=== PATIENT | female | born 1950 | race Two or more races ===

== ENCOUNTER 2017-04-04 22:31 | Inpatient (IN) | payer MEDICAID ==
[~2017-04-04] VITALS: Ht 162.6 cm; Wt 68.0 kg
[~2017-04-04 22:31] MED LIST: AMLO10TA80 PO; ASPI-1159 PO; CARV25TA47 PO; FURO20TA4 PO; GLIP10TA10 PO; INSU3INS6 SUBCUT; LISI10TA5 PO; METF10002 PO; NOVOLOG SQ; SIMV20TA6 PO
[2017-04-04] MEDS ORDERED: METHYLPREDNISOLONE SOD SUCC 125 MG/2 ML VIAL IV STA (23:34)
[2017-04-04] MEDS ORDERED: IPRATROPIUM BROMIDE (0.02%) 0.5MG/2.5ML NEB HHN STA (23:34)
[2017-04-04] MEDS ORDERED: ALBUTEROL (0.083%) 2.5MG/3ML NEB HHN STA (23:34)
[2017-04-04] MEDS ORDERED: SODIUM CHLORIDE 0.9% 1000ML BAG (SEPSIS BOLUS) IV ONE (23:45)
[2017-04-05 00:10] LABS: BASOPHILS % 0.5 % (0.0-2.0); EOSINOPHILS % 4.1 % (0.0-5.0); HEMOGLOBIN. 11.3 g/dL (12.0-16.0); LYMPHOCYTES % 29.2 % (20.0-50.0); MEAN CORPUSCULAR HEMOGLOBIN 28.6 pg (28.0-32.0); MEAN CORPUSCULAR VOLUME 86.1 fL (81.0-99.0); MEAN PLATELET VOLUME 7.5 fl (7.4-10.4); MONOCYTES % 10.1 % (2.0-8.0); NEUTROPHILS % 56.1 % (40.0-76.0); PLATELET 178 x1000/uL (130-400); RED BLOOD CELL COUNT 3.95 mill/uL (4.2-5.4)
[2017-04-05 00:19] LABS: INR 1.1; PROTHROMBIN TIME 11.4 sec
[2017-04-05 00:30] LABS: CARBON DIOXIDE 25 mEq/L (21-32); CHLORIDE 104 mEq/L (98-107); TROPONIN I < 0.02 ng/mL (0.00-0.04)
[2017-04-05] MEDS ORDERED: ALBUTEROL (0.5%) 2.5MG/0.5ML NEB HHN ONE (00:36)
[2017-04-05] MEDS ORDERED: ASPIRIN 325MG TABLET PO ONE (01:45)
[2017-04-05] MEDS ORDERED: LEVOFLOXACIN 500MG PREMIX 100 ML IV ONE (01:45)
[2017-04-05 04:48] LABS: CLARITY URINE CLEAR (CLEAR); COLOR URINE YELLOW (YELLOW); KETONES URINE NEGATIVE (NEGATIVE); LEUKOCYTE ESTERASE URINE NEGATIVE (NEGATIVE); NITRITE URINE NEGATIVE (NEGATIVE); OCCULT BLOOD URINE NEGATIVE (NEGATIVE); PROTEIN URINE 1+ (NEGATIVE); SPECIFIC GRAVITY URINE 1.008 (1.005-1.030); UROBILINOGEN URINE 0.2 E.U./dL (0.2-1.0)
[2017-04-05] MEDS ORDERED: DEXTROSE 50% WATER 50ML SYRINGE IV PRN (10:30)
[2017-04-05] MEDS ORDERED: IPRATROPIUM/ALBUTEROL 0.5-3(2.5)MG/3ML NEB HHN PRN ×2 (10:30→11:15)
[2017-04-05] MEDS ORDERED: CARV12.545 PO (10:37)
[2017-04-05] MEDS ORDERED: INSASP SQ (10:37)
[2017-04-05] MEDS ORDERED: INSU3INS6 SUBCUT (10:37)
[2017-04-05] MEDS ORDERED: LISI-186 PO (10:37)
[2017-04-05] MEDS ORDERED: OMEP20CA10 PO (10:48)
[2017-04-05] MEDS: AZITHROMYCIN 500 MG TABLET PO SCH (10:57)
[2017-04-05] MEDS: ENOXAPARIN 40MG/0.4ML SYR SUBCUT SCH (10:59)
[2017-04-05] MEDS ORDERED: OMEPRAZOLE 20MG CAPSULE EXTENDED RELEASE PO PRN (11:00)
[2017-04-05] MEDS ORDERED: SODIUM CHLORIDE 10% FOR INH 15ML VIAL NEB INH NR (11:30)
[2017-04-05] MEDS: BLOOD SUGAR DIAGNOSTIC STRIP TEST SCH ×3 (11:58→21:01)
[2017-04-05] MEDS ORDERED: INSULIN DETEMIR UD 100 UNITS/ML SYR SUBCUT SCH ×2 (12:00→22:00)
[2017-04-05] MEDS: INSULIN LISPRO 100 UNITS/ML SUBCUT SCH ×3 (12:09→21:00)
[2017-04-05] MEDS ORDERED: METFORMIN HCL 500MG TABLET PO SCH (12:15)
[2017-04-05 12:28] LABS: CREATINE KINASE 176 IU/L (26-192); CREATINE KINASE MB FRACTION 2.5 ng/mL (0.5-3.6); HDL CHOLESTEROL 77 mg/dL (40-59); LDL CHOLESTEROL 93 mg/dL (5-100); TROPONIN I < 0.02 ng/mL (0.00-0.04)
[2017-04-05] MEDS: CEFTRIAXONE 1 G PREMIX 50 ML IV SCH (14:39)
[2017-04-05] MEDS: ACETAMINOPHEN 325MG TABLET PO PRN (14:39)
[2017-04-05] MEDS: BUDESONIDE 0.5MG/2ML NEB HHN SCH ×3 (15:11→23:45)
[2017-04-05] MEDS: IPRATROPIUM/ALBUTEROL 0.5-3(2.5)MG/3ML NEB HHN SCH ×2 (15:11→20:50)
[2017-04-05] MEDS: CARVEDILOL 12.5MG TABLET PO SCH (16:12)
[2017-04-05] MEDS: AMLODIPINE 10MG TABLET PO SCH ×2 (16:12→16:15)
[2017-04-05] MEDS: GLIPIZIDE 10MG TABLET PO SCH (16:13)
[2017-04-05] MEDS ORDERED: MEDICATION NOT ON FORMULARY EA (Metformin Hcl 1 TAB) PO SCH (17:00)
[2017-04-05] MEDS ORDERED: LISINOPRIL 5MG TABLET PO SCH (17:00)
[2017-04-05] MEDS: METFORMIN HCL 500MG TABLET PO SCH (17:54)
[2017-04-05 20:51] LABS: CREATINE KINASE 232 IU/L (26-192); CREATINE KINASE MB FRACTION 3.2 ng/mL (0.5-3.6); TROPONIN I < 0.02 ng/mL (0.00-0.04)
[2017-04-05] MEDS: GUAIFENESIN 600MG ER TABLET PO SCH (20:59)
[2017-04-05] MEDS ORDERED: ATORVASTATIN CALCIUM 10MG TABLET PO SCH (21:00)
[2017-04-05] MEDS ORDERED: MEDICATION NOT ON FORMULARY EA (Simvastatin 1 TAB) PO SCH (21:00)
[2017-04-05] MEDS ORDERED: INSULIN GLARGINE HUM REC ANLOG 18 UNIT SUBCUT SCH (22:00)
[2017-04-05] MEDS ORDERED: [UNRECOGNIZED DRUG - OTHER] SUBCUT SCH (22:00)
[2017-04-06] MEDS: IPRATROPIUM/ALBUTEROL 0.5-3(2.5)MG/3ML NEB HHN SCH ×6 (00:27→15:46)
[2017-04-06] MEDS ORDERED: MAGNESIUM 2 G PREMIX 50 ML IV NR (01:00)
[2017-04-06] MEDS: PROMETHAZINE/DEXTROMETHORPHAN 6.25-15MG/5ML BOTTLE 120ML PO PRN ×2 (01:58→08:46)
[2017-04-06] MEDS: ACETAMINOPHEN 325MG TABLET PO PRN ×2 (06:42→15:08)
[2017-04-06] MEDS ORDERED: OMEPRAZOLE 20MG CAPSULE EXTENDED RELEASE PO SCH (06:45)
[2017-04-06] MEDS: BLOOD SUGAR DIAGNOSTIC STRIP TEST SCH ×3 (06:54→17:14)
[2017-04-06] MEDS: INSULIN LISPRO 100 UNITS/ML SUBCUT SCH ×3 (06:54→17:15)
[2017-04-06 07:04] LABS: BASOPHILS % 0.3 % (0.0-2.0); EOSINOPHILS % 0.5 % (0.0-5.0); HEMATOCRIT. 32.7 % (36.0-48.0); HEMOGLOBIN. 10.9 g/dL (12.0-16.0); LYMPHOCYTES % 26.7 % (20.0-50.0); MEAN CORPUSCULAR HEMOGLOBIN 28.3 pg (28.0-32.0); MEAN CORPUSCULAR VOLUME 84.7 fL (81.0-99.0); MEAN PLATELET VOLUME 7.7 fl (7.4-10.4); MONOCYTES % 8.4 % (2.0-8.0); NEUTROPHILS % 64.1 % (40.0-76.0); PLATELET 191 x1000/uL (130-400); RED BLOOD CELL COUNT 3.86 mill/uL (4.2-5.4); RED CELL DISTRIBUTION WIDTH 14.1 % (11.6-14.6)
[2017-04-06 07:14] LABS: CHLORIDE 107 mEq/L (98-107)
[2017-04-06 07:17] LABS: CARBON DIOXIDE 27 mEq/L (21-32)
[2017-04-06] MEDS: METFORMIN HCL 500MG TABLET PO SCH ×2 (07:57→17:13)
[2017-04-06] MEDS: BUDESONIDE 0.5MG/2ML NEB HHN SCH (08:39)
[2017-04-06] MEDS: ENOXAPARIN 40MG/0.4ML SYR SUBCUT SCH (08:44)
[2017-04-06] MEDS: AZITHROMYCIN 500 MG TABLET PO SCH (08:45)
[2017-04-06] MEDS: GLIPIZIDE 10MG TABLET PO SCH ×2 (08:45→17:13)
[2017-04-06] MEDS: GUAIFENESIN 600MG ER TABLET PO SCH ×2 (08:45→09:00)
[2017-04-06] MEDS: AMLODIPINE 10MG TABLET PO SCH ×2 (08:45→17:13)
[2017-04-06] MEDS: CARVEDILOL 12.5MG TABLET PO SCH ×2 (08:46→17:13)
[2017-04-06] MEDS ORDERED: ASPIRIN 81MG TABLET PO SCH (09:00)
[2017-04-06] MEDS ORDERED: GUAIFENESIN/CODEINE 100-10MG/5ML UDC PO PRN (12:15)
[2017-04-06] MEDS: CEFTRIAXONE 1 G PREMIX 50 ML IV SCH (13:51)
[2017-04-06 16:22] VITALS: BP 126/64
[2017-04-07] MEDS ORDERED: FUROSEMIDE 20MG TABLET PO SCH (09:00)
== END 2017-04-06 17:30 | disposition home or self-care (01) | DRG 133 ==
LOC: ER 04-05 → 5WST 04-05 01:42 → EDBEDREQTM 04-05 01:45 → EDBEDREQ 04-05 01:45 → ENRESERV 04-05 08:00 → CANBEDREQ 04-05 09:44
PROVIDERS: ADMIT Internal Medicine; ATTEND Internal Medicine
DX: J96.00 Acute respiratory failure, unspecified whether with hypoxia or hypercapnia (principal); J44.9 Chronic obstructive pulmonary disease, unspecified; E11.65 Type 2 diabetes mellitus with hyperglycemia; E44.1 Mild protein-calorie malnutrition; E11.9 Type 2 diabetes mellitus without complications; I10 Essential (primary) hypertension; E78.5 Hyperlipidemia, unspecified; I25.10 Atherosclerotic heart disease of native coronary artery without angina pectoris; J06.9 Acute upper respiratory infection, unspecified; R07.89 Other chest pain; K21.9 Gastro-esophageal reflux disease without esophagitis; Z79.84 Long term (current) use of oral hypoglycemic drugs; Z79.899 Other long term (current) drug therapy; Z82.49 Family history of ischemic heart disease and other diseases of the circulatory system; Z95.1 Presence of aortocoronary bypass graft; Z79.82 Long term (current) use of aspirin; E83.42 Hypomagnesemia
CPT/HCPCS: 36415; 71010; 71250; 80048; 80053; 80061; 81001; 82550; 82553; 82962; 83605; 83735; 83880; 84484; 85025; 85610; 87040; 87070; 87086; 93005; 93306; 93970; 94640; 96361; 96365; 96366; 96375; 99285; J0696; J1650; J1815; J1956; J2930; J3475; J7030; J7040; J7131; J7611; J7620; J7626

== ENCOUNTER 2020-08-29 14:49 | Inpatient (IN) | payer MEDICAID ==
[~2020-08-29] VITALS: Ht 162.6 cm; Wt 76.0 kg
[~2020-08-29 14:49] MED LIST changes: -ASPI-1159 PO; +ASPI-1497 PO; +CARV12.545 PO; -CARV25TA47 PO; +INSASP SQ; -LISI10TA5 PO; +METF-416 PO; -METF10002 PO; -NOVOLOG SQ; +OMEP20CA14 PO; +SIMV-43 PO; -SIMV20TA6 PO
[2020-08-29] MEDS: ASPIRIN 81MG TABLET PO NR ×2 (16:00→17:11)
[2020-08-29] MEDS: GUAIFENESIN 200MG TABLET PO NR ×3 (16:00→17:12)
[2020-08-29 16:28] LABS: BASOPHILS % 0.7 % (0.0-2.0); EOSINOPHILS % 3.5 % (0.0-5.0); HEMATOCRIT. 34.3 % (36.0-48.0); HEMOGLOBIN. 11.4 g/dL (12.0-16.0); MEAN CORPUSCULAR HEMOGLOBIN 28.7 pg (28.0-32.0); MEAN CORPUSCULAR VOLUME 86.7 fL (81.0-99.0); MEAN PLATELET VOLUME 7.8 fl (7.4-10.4); MONOCYTES % 11.9 % (2.0-8.0); NEUTROPHILS % 58.9 % (40.0-76.0); PLATELET 246 x1000/uL (130-400); RED BLOOD CELL COUNT 3.96 mill/uL (4.2-5.4); RED CELL DISTRIBUTION WIDTH 14.7 % (11.6-14.6)
[2020-08-29 17:28] LABS: CHLORIDE 108 mEq/L (98-107)
[2020-08-29] MEDS ORDERED: DOXYCYCLINE HYCLATE 100MG CAPSULE PO ONE ×2 (18:30→19:00)
[2020-08-29] MEDS ORDERED: CEFTRIAXONE 1 G PREMIX 50 ML IV ONE (18:30)
[2020-08-29 21:27] VITALS: BP_SYST 149; BP_DIAS 65; BP_DIAS 86
[2020-08-29] MEDS ORDERED: DEXTROSE 50% WATER 50ML SYRINGE IV PRN (23:15)
[2020-08-29] MEDS ORDERED: ALBUTEROL 6.7GM HFA INHALER ORI PRN (23:15)
[2020-08-29] MEDS ORDERED: CEFTRIAXONE 1 G PREMIX 50 ML IV SCH (23:15)
[2020-08-30] VITALS: BP 135/73
[2020-08-30] MEDS ORDERED: LANTUSUD SUBCUT (00:14)
[2020-08-30] MEDS ORDERED: AMLO5TAB88 PO (00:14)
[2020-08-30] MEDS ORDERED: ASPI-1497 MT (00:14)
[2020-08-30] MEDS ORDERED: LOSA25TA26 MT (00:14)
[2020-08-30] MEDS ORDERED: CARV12.545 MT (00:14)
[2020-08-30] MEDS: ACETAMINOPHEN 325MG TABLET PO PRN ×2 (00:21→15:21)
[2020-08-30] MEDS: GUAIFENESIN 200MG/10ML SUGAR FREE UDC PO PRN (00:21)
[2020-08-30] MEDS: AZITHROMYCIN 500 MG in DEXT 5% WATER 250 ML IV SCH (01:33)
[2020-08-30 04:00] VITALS: BP 129/50
[2020-08-30] MEDS: BLOOD SUGAR DIAGNOSTIC STRIP TEST SCH ×4 (06:05→20:49)
[2020-08-30] MEDS: INSULIN LISPRO 100 UNITS/ML SUBCUT SCH ×4 (06:49→20:48)
[2020-08-30 07:06] LABS: BASOPHILS % 0.3 % (0.0-2.0); EOSINOPHILS % 3.3 % (0.0-5.0); HEMATOCRIT. 33.9 % (36.0-48.0); HEMOGLOBIN. 11.4 g/dL (12.0-16.0); LYMPHOCYTES % 34.5 % (20.0-50.0); MEAN CORPUSCULAR HEMOGLOBIN 28.7 pg (28.0-32.0); MEAN CORPUSCULAR VOLUME 85.3 fL (81.0-99.0); MEAN PLATELET VOLUME 7.2 fl (7.4-10.4); MONOCYTES % 14.3 % (2.0-8.0); NEUTROPHILS % 47.6 % (40.0-76.0); PLATELET 242 x1000/uL (130-400); RED BLOOD CELL COUNT 3.97 mill/uL (4.2-5.4)
[2020-08-30 08:00] VITALS: BP 135/67
[2020-08-30] MEDS ORDERED: DEXAMETHASONE 4MG TABLET PO SCH (09:00)
[2020-08-30] MEDS: ASPIRIN 81MG TABLET PO SCH (10:06)
[2020-08-30] MEDS: ENOXAPARIN 40MG/0.4ML SYR SUBCUT SCH (10:06)
[2020-08-30] MEDS: FAMOTIDINE 20MG TABLET PO SCH (10:07)
[2020-08-30] MEDS: CARVEDILOL 12.5MG TABLET PO SCH ×2 (10:07→20:46)
[2020-08-30] MEDS: LOSARTAN POTASSIUM 25 MG TABLET PO SCH (10:07)
[2020-08-30] MEDS: GUAIFENESIN 600MG ER TABLET PO SCH ×2 (10:08→20:46)
[2020-08-30] MEDS: AMLODIPINE 10MG TABLET PO SCH (10:08)
[2020-08-30 12:00] VITALS: BP 120/54
[2020-08-30] MEDS ORDERED: INSULIN LISPRO 100 UNITS/ML SUBCUT NR (15:45)
[2020-08-30 16:00] VITALS: BP 127/96
[2020-08-30 20:00] VITALS: BP 158/60
[2020-08-30] MEDS ORDERED: GLIPIZIDE 10MG TABLET PO NR (20:00)
[2020-08-30] MEDS: CEFTRIAXONE 1,000 MG in DEXTROSE 5% WATER 50 ML IV SCH (20:45)
[2020-08-30] MEDS: ATORVASTATIN CALCIUM 10MG TABLET PO SCH (20:46)
[2020-08-30] MEDS: INSULIN GLARGINE UD 100 UNITS/ML SYR SUBCUT SCH (21:31)
[2020-08-30] MEDS ORDERED: INSULIN GLARGINE UD 100 UNITS/ML SYR SUBCUT SCH ×2 (22:00)
[2020-08-31] VITALS: BP 140/56
[2020-08-31] MEDS: AZITHROMYCIN 500 MG in DEXT 5% WATER 250 ML IV SCH (00:52)
[2020-08-31] MEDS: GUAIFENESIN 200MG/10ML SUGAR FREE UDC PO PRN ×2 (03:17→08:18)
[2020-08-31 04:00] VITALS: BP 154/69
[2020-08-31] MEDS: BLOOD SUGAR DIAGNOSTIC STRIP TEST SCH ×4 (06:23→20:35)
[2020-08-31 06:47] LABS: BASOPHILS % 0.3 % (0.0-2.0); HEMATOCRIT. 34.1 % (36.0-48.0); HEMOGLOBIN. 11.6 g/dL (12.0-16.0); MEAN CORPUSCULAR VOLUME 85.3 fL (81.0-99.0); MEAN PLATELET VOLUME 7.3 fl (7.4-10.4); MONOCYTES % 7.2 % (2.0-8.0); NEUTROPHILS % 80.5 % (40.0-76.0); PLATELET 278 x1000/uL (130-400); RED BLOOD CELL COUNT 3.99 mill/uL (4.2-5.4); RED CELL DISTRIBUTION WIDTH 13.9 % (11.6-14.6)
[2020-08-31 06:55] LABS: CHLORIDE 103 mEq/L (98-107)
[2020-08-31 08:00] VITALS: BP 153/68
[2020-08-31] MEDS: ENOXAPARIN 40MG/0.4ML SYR SUBCUT SCH (08:18)
[2020-08-31] MEDS: INSULIN LISPRO 100 UNITS/ML SUBCUT SCH ×4 (08:18→20:35)
[2020-08-31] MEDS: FAMOTIDINE 20MG TABLET PO SCH (08:18)
[2020-08-31] MEDS: GUAIFENESIN 600MG ER TABLET PO SCH ×2 (08:18→20:33)
[2020-08-31] MEDS: ASPIRIN 81MG TABLET PO SCH (08:18)
[2020-08-31] MEDS: LOSARTAN POTASSIUM 25 MG TABLET PO SCH ×2 (08:19→20:33)
[2020-08-31] MEDS: AMLODIPINE 10MG TABLET PO SCH (08:19)
[2020-08-31] MEDS: CARVEDILOL 12.5MG TABLET PO SCH ×2 (08:19→20:34)
[2020-08-31] MEDS: INSULIN GLARGINE UD 100 UNITS/ML SYR SUBCUT SCH ×2 (09:14→21:14)
[2020-08-31] MEDS: ACETAMINOPHEN 325MG TABLET PO PRN (09:16)
[2020-08-31] MEDS ORDERED: GUAIFENESIN-DM 200MG-20MG/10ML UDC PO PRN (09:30)
[2020-08-31] MEDS: BENZONATATE 100MG CAPSULE PO SCH ×3 (09:46→21:14)
[2020-08-31] MEDS: DEXAMETHASONE 4MG TABLET PO SCH (11:43)
[2020-08-31] MEDS: HYDRALAZINE HCL 25MG TABLET PO SCH ×2 (11:43→21:14)
[2020-08-31] MEDS: FLUTICASONE PROPIONATE 50MCG/SPRAY BOTTLE BOTHNSTRLS SCH ×2 (11:46→20:32)
[2020-08-31 12:00] VITALS: BP 148/71
[2020-08-31 16:00] VITALS: BP 151/69
[2020-08-31] MEDS: GLIPIZIDE 10MG TABLET PO SCH (17:12)
[2020-08-31 20:00] VITALS: BP 135/53
[2020-08-31] MEDS: CEFTRIAXONE 1,000 MG in DEXTROSE 5% WATER 50 ML IV SCH (20:32)
[2020-08-31] MEDS: ATORVASTATIN CALCIUM 10MG TABLET PO SCH (20:35)
[2020-09-01] VITALS: BP 132/48
[2020-09-01] MEDS: AZITHROMYCIN 500 MG in DEXT 5% WATER 250 ML IV SCH (01:11)
[2020-09-01 04:00] VITALS: BP 136/56
[2020-09-01] MEDS: BENZONATATE 100MG CAPSULE PO SCH ×2 (06:26→13:50)
[2020-09-01] MEDS: HYDRALAZINE HCL 25MG TABLET PO SCH ×2 (06:27→13:50)
[2020-09-01] MEDS: BLOOD SUGAR DIAGNOSTIC STRIP TEST SCH ×2 (06:27→11:40)
[2020-09-01] MEDS: GLIPIZIDE 10MG TABLET PO SCH (06:27)
[2020-09-01 08:00] VITALS: BP 143/62
[2020-09-01] MEDS: GUAIFENESIN 600MG ER TABLET PO SCH (09:00)
[2020-09-01 09:01] LABS: BASOPHILS % 0.2 % (0.0-2.0); HEMATOCRIT. 35.2 % (36.0-48.0); HEMOGLOBIN. 11.7 g/dL (12.0-16.0); LYMPHOCYTES % 11.5 % (20.0-50.0); MEAN CORPUSCULAR HEMOGLOBIN 28.8 pg (28.0-32.0); MEAN CORPUSCULAR VOLUME 86.5 fL (81.0-99.0); MEAN PLATELET VOLUME 7.1 fl (7.4-10.4); MONOCYTES % 5.8 % (2.0-8.0); NEUTROPHILS % 82.5 % (40.0-76.0); PLATELET 320 x1000/uL (130-400); RED BLOOD CELL COUNT 4.06 mill/uL (4.2-5.4)
[2020-09-01 09:16] LABS: CHLORIDE 104 mEq/L (98-107)
[2020-09-01] MEDS: ASPIRIN 81MG TABLET PO SCH (09:31)
[2020-09-01] MEDS: GUAIFENESIN 200MG/10ML SUGAR FREE UDC PO PRN (09:31)
[2020-09-01] MEDS: ENOXAPARIN 40MG/0.4ML SYR SUBCUT SCH (09:32)
[2020-09-01] MEDS: FLUTICASONE PROPIONATE 50MCG/SPRAY BOTTLE BOTHNSTRLS SCH (09:32)
[2020-09-01] MEDS: AMLODIPINE 10MG TABLET PO SCH (09:33)
[2020-09-01] MEDS: LOSARTAN POTASSIUM 25 MG TABLET PO SCH (09:33)
[2020-09-01] MEDS: DEXAMETHASONE 4MG TABLET PO SCH (09:33)
[2020-09-01] MEDS: FAMOTIDINE 20MG TABLET PO SCH (09:33)
[2020-09-01] MEDS: INSULIN LISPRO 100 UNITS/ML SUBCUT SCH ×2 (09:36→13:51)
[2020-09-01] MEDS: INSULIN GLARGINE UD 100 UNITS/ML SYR SUBCUT SCH (09:38)
[2020-09-01] MEDS: CARVEDILOL 12.5MG TABLET PO SCH (09:39)
[2020-09-01] MEDS ORDERED: LANTUSUD SUBCUT (09:48)
[2020-09-01] MEDS ORDERED: LOSA50TA41 MT (09:48)
[2020-09-01] MEDS ORDERED: BENZ100C86 PO (09:48)
[2020-09-01] MEDS ORDERED: ALBU6.7H9 ORI (09:48)
[2020-09-01] MEDS ORDERED: DEX4 PO (09:48)
[2020-09-01] MEDS ORDERED: ACET-2708 MT (09:49)
[2020-09-01] MEDS ORDERED: INSU100I13 SQ (09:49)
[2020-09-01] MEDS ORDERED: GLIP10TA10 MT (09:49)
[2020-09-01] MEDS: ACETAMINOPHEN 325MG TABLET PO PRN (10:42)
[2020-09-01 12:00] VITALS: BP 141/59
[2020-09-01 14:38] VITALS: BP 132/58
[2020-09-02] MEDS ORDERED: AZITHROMYCIN 500 MG TABLET PO SCH (09:00)
== END 2020-09-01 15:30 | disposition home or self-care (01) | DRG 720 ==
LOC: ER 14:49 → 7EST 18:32 → ENRESERV 20:39
PROVIDERS: ADMIT Internal Medicine; ATTEND Internal Medicine
DX: A41.89 Other specified sepsis (principal); J12.89 Other viral pneumonia; U07.1 COVID-19; J96.01 Acute respiratory failure with hypoxia; E11.9 Type 2 diabetes mellitus without complications; E78.5 Hyperlipidemia, unspecified; I25.10 Atherosclerotic heart disease of native coronary artery without angina pectoris; I11.0 Hypertensive heart disease with heart failure; I50.9 Heart failure, unspecified; Z79.82 Long term (current) use of aspirin; Z79.899 Other long term (current) drug therapy; Z79.4 Long term (current) use of insulin; Z95.1 Presence of aortocoronary bypass graft; Z98.891 History of uterine scar from previous surgery; Z82.49 Family history of ischemic heart disease and other diseases of the circulatory system; Z83.3 Family history of diabetes mellitus; Z82.3 Family history of stroke
CPT/HCPCS: 36415; 71045; 80048; 80053; 80061; 82962; 83036; 83880; 84484; 85025; 87635; 93005; 99291; J0456; J0696; J1650; J1815; J7040; J7060; J8540

== ENCOUNTER 2022-11-11 15:51 | Emergency (ER) | payer MEDICAID ==
[~2022-11-11] VITALS: Ht 162.6 cm; Wt 76.0 kg
[~2022-11-11 15:51] MED LIST changes: +ACET-2708 MT; +ALBU6.7H3 ORI; -AMLO10TA80 PO; +AMLO5TAB88 PO; +ASPI-1497 MT; -ASPI-1497 PO; +BENZ100C86 PO; +CARV12.545 MT; -CARV12.545 PO; +DEX4 PO; -FURO20TA4 PO; +GLIP10TA10 MT; -GLIP10TA10 PO; -INSASP SQ; +INSU100I13 SQ; -INSU3INS6 SUBCUT; +LANTUSUD SUBCUT; +LOSA25TA26 MT; +LOSA50TA41 MT; -METF-416 PO; -OMEP20CA14 PO; -SIMV-43 PO
[2022-11-11 16:16] VITALS: BP 165/49
[2022-11-11] MEDS ORDERED: AMOX-494 MT (18:12)
[2022-11-11] MEDS ORDERED: FLUT9.9S BOTHNSTRLS (18:12)
[2022-11-11] MEDS ORDERED: D-ME473S50 PO (18:37)
== END 2022-11-11 18:43 | disposition home or self-care (01) ==
LOC: ER 15:51
DX: J01.90 Acute sinusitis, unspecified (principal); I10 Essential (primary) hypertension; E11.9 Type 2 diabetes mellitus without complications; Z68.28 Body mass index [BMI] 28.0-28.9, adult; Z79.899 Other long term (current) drug therapy; Z98.890 Other specified postprocedural states
CPT/HCPCS: 71045; 93005; 99283

== ENCOUNTER 2023-09-08 13:39 | Emergency (ER) | payer OTHER ==
[~2023-09-08] VITALS: Ht 165.1 cm; Wt 100.0 kg
[~2023-09-08 13:39] MED LIST changes: +AMOX-494 MT; +D-ME473S50 PO; +FLUT9.9S BOTHNSTRLS
[2023-09-08 13:47] VITALS: BP 140/64; PULSE 95; RESP 18; TEMP 98.5; O2SAT 100
[2023-09-08 14:27] LABS: BASOPHILS % 0.3 % (0.0-2.0); EOSINOPHILS % 1.9 % (0.0-5.0); HEMATOCRIT. 35.3 % (36.0-48.0); HEMOGLOBIN. 11.7 g/dL (12.0-16.0); LYMPHOCYTES % 28.5 % (20.0-50.0); MEAN CORPUSCULAR HEMOGLOBIN 29.1 pg (28.0-32.0); MEAN CORPUSCULAR HGB CONC 33.3 g/dL (31.0-37.0); MEAN CORPUSCULAR VOLUME 87.4 fL (81.0-99.0); MEAN PLATELET VOLUME 7.3 fl (7.4-10.4); MONOCYTES % 7.9 % (2.0-8.0); NEUTROPHILS % 61.4 % (40.0-76.0); PLATELET 232 x1000/uL (130-400); RED BLOOD CELL COUNT 4.04 mill/uL (4.2-5.4); RED CELL DISTRIBUTION WIDTH 14.2 % (11.6-14.6); WHITE BLOOD COUNT 7.2 x1000/uL (4.5-11.0)
[2023-09-08 14:40] LABS: ALANINE AMINOTRANSFERASE 17 IU/L (10-49); ASPARTATE AMINOTRANSFERASE 25 IU/L (<34); BILIRUBIN TOTAL 0.9 mg/dL (0.1-1.0); CALCIUM 9.6 mg/dL (8.7-10.4); CARBON DIOXIDE 26 mEq/L (21-32); CHLORIDE 106 mEq/L (98-107); CREATININE 1.2 mg/dL (0.6-1.0); GLUCOSE 195 mg/dL (70-105); POTASSIUM 4.6 mEq/L (3.5-5.1); PROTEIN TOTAL 7.5 g/dL (6.0-8.3); SODIUM 138 mEq/L (136-145); UREA NITROGEN BLOOD 20 mg/dL (9-23)
[2023-09-08] MEDS ORDERED: AMOX-494 MT (15:36)
[2023-09-08] MEDS ORDERED: FLUT9.9S BOTHNSTRLS (15:36)
== END 2023-09-08 16:59 | disposition home or self-care (01) ==
LOC: ER 13:39
DX: R05.9 Cough, unspecified (principal); R09.82 Postnasal drip; E11.9 Type 2 diabetes mellitus without complications; I12.9 Hypertensive chronic kidney disease with stage 1 through stage 4 chronic kidney disease, or unspecified chronic kidney disease; N18.9 Chronic kidney disease, unspecified; Z98.890 Other specified postprocedural states; Z20.822 Contact with and (suspected) exposure to COVID-19
CPT/HCPCS: 99285; 71045; 87426; 80053; 85025; 36415; 93005; C9803